=== PATIENT | female | born 1965 | race Caucasian/White ===

== ENCOUNTER → 2016-06-06 | Outpatient (CLI) | payer BC ==
[~2016-06-06] MED LIST: DOXY100C2 PO; FOLI1TAB7 PO; LEVO100T7 PO; LEVO50TA6 PO; METH1INJ89 SQ; MORP1TAB12 PO; OXYC-609 PO; OXYC15TA89 PO; RANI300T2 PO
--- NOTE | 2016-06-06 10:14 | DIAGNOSTIC IMAGING REPORT ---
MRI OF THE CERVICAL SPINE WITHOUT CONTRAST, FLEXION AND EXTENSION STUDY WITH CSF FLOW CLINICAL HISTORY: Chiari malformation. Upper motor signs. Severe pain with extremity numbness and tingling. Headache. COMPARISON STUDY: MRI of the cervical spine April 10, 2016. TECHNIQUE: Utilizing a 1.5 Mony magnet, multiplanar, multi echo imaging of the cervical spine was performed without intravenous contrast in the neutral, flexion and extension positions. EKG gated phase contrast CSF flow was performed. FINDINGS: There is 4 mm of cerebellar tonsillar ectopia. The findings do not meet criteria for a Chiari 1 malformation. Cervical cord signal and caliber are normal. There is no intracanalicular mass or fluid collection. Vertebral body heights are maintained. Paravertebral soft tissues are unremarkable. The neural foramen are suboptimally assessed on this exam. Alignment of the cervical spine is anatomic. There is no evidence for instability with flexion or extension. Disc bulges at C5-C6, C6-C7 and C7-T1 do not change with flexion or extension. There is minimal central canal narrowing at C6-C7. This is unchanged. Multilevel neural foraminal narrowing is better depicted on prior MRI. This appears unchanged. There is normal CSF flow within the anterior and posterior canal in the neutral, flexion and extension positions. IMPRESSION: 1. Mild multilevel degenerative disc disease, similar to exam of April 10, 2016. 2. Normal cervical cord signal and caliber. 3. Mild cerebellar tonsillar ectopia. The findings do not meet criteria for a Chiari I malformation. 4. Normal CSF flow in the neutral, flexion and extension positions. Electronically signed by: Barrington Carter M.D. 06/06/2016 10:13 AM Dictated Date/Time: 06/06/2016 10:04 AM
== END | disposition home or self-care (01) ==
LOC: C.MRI 07:54
DX: G93.5 Compression of brain (principal); G95.9 Disease of spinal cord, unspecified

== ENCOUNTER → 2016-10-18 | Outpatient (CLI) | payer BC ==
--- NOTE | 2016-10-18 14:35 | MAMMOGRAPHY REPORT ---
BILATERAL DIGITAL SCREENING MAMMOGRAM TOMOSYNTHESIS WITH CAD: 10/18/2016 CLINICAL HISTORY: Routine screening. Patient has no complaints. TECHNIQUE: Breast tomosynthesis in addition to standard 2D mammography was performed. Current study was also evaluated with a Computer Aided Detection (CAD) system. COMPARISON: Comparison is made to exams dated: 01/23/2012 mammogram, 01/04/2011 mammogram, 12/30/2009 m ammogram, 12/28/2009 mammogram - [facility], and 12/22/2008. BREAST COMPOSITION: There are scattered areas of fibroglandular density in both breasts. FINDINGS: No suspicious masses, calcifications, or areas of architectural distortion are noted in ei ther breast. There has been no significant interval change compared to prior exams. IMPRESSION: ACR BI-RADS CATEGORY 1: NEGATIVE There is no mammographic evidence of malignancy. A 1 year screening mammogram is recommended. The pa tient will receive written notification of the results. Approximately 10% of breast cancers are not detected with mammography. A negative mammographic report should not delay biopsy if a clinically suggestive mass is present. Mary Kay Friedman M.D. /:10/18/2016 13:22:03 Asp Developer: Jennifer IVAN(Sandra)(Maru)(BD), [facility] letter sent: Normal 1/2 BI-RADS Code: ACR BI-RADS Category 1: Negative
== END | disposition home or self-care (01) ==
LOC: C.MAMM 10:59
DX: Z12.31 Encounter for screening mammogram for malignant neoplasm of breast (principal)

== ENCOUNTER → 2016-10-24 | Outpatient (CLI) | payer BC | END | disposition home or self-care (01) | LOC: C.PAPS 10:29 | PROVIDERS: ATTEND Physician Assistant | DX: Z01.419 Encounter for gynecological examination (general) (routine) without abnormal findings (principal) ==

== ENCOUNTER → 2016-11-23 | Outpatient (CLI) | payer BC ==
[~2016-11-23] MED LIST changes: +OPTIRAY 320 IV PRN
--- NOTE | 2016-11-23 12:33 | DIAGNOSTIC IMAGING REPORT ---
ABD/PELVIS IV AND ORAL CONT CT DOSE: 687.60 mGycm HISTORY: Pain AB PAIN TECHNIQUE: Multiaxial CT images of the abdomen and pelvis were performed following the use of intravenous and oral contrast. A dose lowering technique was utilized adhering to the principles of ALARA. COMPARISON STUDY: 08/16/2014 FINDINGS: Lung bases are clear. Liver is uniform. Gallbladder is contracted. Kidneys enhance uniformly. Nonobstructive bowel pattern. Normal appendix. Subtle wall edema of several loops of small bowel raising the possibility of nonspecific enteritis. Slight wall edema of the sigmoid and descending colonic regions. Trace pericolonic infiltrative change. No evidence for abscess collection or obstruction. IMPRESSION: 1. Normal appendix. 2. Nonobstructive bowel pattern. 3. Mild small bowel enteritis. 4. Mild nonspecific colitis of the sigmoid and distal descending colonic region. 5. No evidence for abscess collection or obstruction. The above report was generated using voice recognition software. It may contain grammatical, syntax or spelling errors. Electronically signed by: Arden Sandoval M.D. 11/23/2016 12:31 PM Dictated Date/Time: 11/23/2016 12:23 PM
== END | disposition home or self-care (01) ==
LOC: C.CTS 11:50
DX: R31.9 Hematuria, unspecified (principal); R10.9 Unspecified abdominal pain

== ENCOUNTER → 2016-11-29 | Day surgery (SDC) | payer BC ==
[~2016-11-29] VITALS: Ht 165.1 cm; Wt 81.8 kg
[~2016-11-29] MED LIST changes: -DOXY100C2 PO; -LEVO50TA6 PO; +LIDOCAINE HCL 2% 2 ML VIAL (20MG/ML) ONE; +MIDAZOLAM HCL 1 MG/ML 2ML VIAL ONE; -OPTIRAY 320 IV PRN; -OXYC-609 PO; +PROPOFOL IV EMULSION 10 MG/ML 20 ML VIAL IV ONE; +SODIUM CHLORIDE 0.9% 500ML 500 ML IV ONE
[2016-11-29 13:58] VITALS: Ht 165.1 cm; Wt 81.8 kg
--- NOTE | 2016-11-29 15:07 | Endo History and Physical ---
History & Physical Date of Service: Nov 29, 2016. Chief Complaint: MYLEOPATHY Referring Physician: DR. GARZA History of Present Illness EGD and colon for paraneoplastic syndrome Past Medical History Arthritis, Fractures, Thyroid Disease Past Surgical History Hx Cardiac Surgery: No Hx Internal Defibrillator: No Hx Pacemaker: No Hx Abdominal Surgery: Yes (HYSTERECTOMY) Hx of Implantable Prosthesis: No Hx Post-Op Nausea and Vomiting: No Hx Cancer Surgery: No Hx Thoracic Surgery: No Hx Orthopedic: No Hx Urinary Tract Surgery: No Family History None Social History Smoking Status: Current Every Day Smoker Hx Substance Use: Yes (SEE MED REC) Hx Alcohol Use: Yes (OCCASIONALLY) Allergies Coded Allergies: Penicillins (Verified Allergy, Intermediate, TROUBLE BREATHING, 11/29/16) Current Medications Reported Home Medications Medications Dose Route/Sig Max Daily Dose Days Date Category Dose Instructions Oxycontin (Oxycodone Hcl) 15 Mg Tab 1-1.5 Tab PO Q4H PRN 11/28/16 Reported Zantac (Ranitidine HCl) 300 Mg Tab 300 Mg PO BID 11/28/16 Reported Levothyroxine Sodium 100 Mcg Tab 1 Tab PO QAM 90 11/28/16 Reported Folvite (Folic Acid) 1 Mg Tab 2 Tab PO QAM 06/06/15 Reported Morphine Sulfate Er (Morphine Sulfate) 30 Mg Tab 30 Mg PO TID 05/07/15 Reported Methotrexate (Methotrexate Sodium) Inj 0.4 Ml SQ WK 03/01/09 Reported TAKE THIS MEDICATION EVERY SATURDAY. Vital Signs Weight (Kilograms): 81.82 Height (Feet): 5 Height (Inches): 5 Date Time Temp Pulse Resp B/P (MAP) Pulse Ox O2 Delivery O2 Flow Rate FiO2 11/29/16 14:04 37.1 65 16 140/76 (97) 97 Room Air Physical Exam AAOx3 Nls1s2 Lungs CTA Abd soft NT/ND + BS - CCE Assessment and Plan EGD/colonoscopy
--- NOTE | 2016-11-29 15:47 | Discharge Instructions ---
Endoscopy Patient Instructions Date / Procedure(s) Performed Nov 29, 2016. Colonoscopy, EGD Allergy Information Coded Allergies: Penicillins (Verified Allergy, Intermediate, TROUBLE BREATHING, 11/29/16) Discharge Date / Findings Nov 29, 2016. mild esopgaitis; superficial gastric ulcer nl colon Medication Instructions Restart Stopped Medication(s): Reported Home Medications Medications Dose Route/Sig Max Daily Dose Days Date Category Dose Instructions Oxycontin (Oxycodone Hcl) 15 Mg Tab 1-1.5 Tab PO Q4H PRN 11/28/16 Reported Zantac (Ranitidine HCl) 300 Mg Tab 300 Mg PO BID 11/28/16 Reported Levothyroxine Sodium 100 Mcg Tab 1 Tab PO QAM 90 11/28/16 Reported Folvite (Folic Acid) 1 Mg Tab 2 Tab PO QAM 06/06/15 Reported Morphine Sulfate Er (Morphine Sulfate) 30 Mg Tab 30 Mg PO TID 05/07/15 Reported Methotrexate (Methotrexate Sodium) Inj 0.4 Ml SQ WK 03/01/09 Reported TAKE THIS MEDICATION EVERY SATURDAY. Reported Home Medications Medications Dose Route/Sig Max Daily Dose Days Date Category Dose Instructions Oxycontin (Oxycodone Hcl) 15 Mg Tab 1-1.5 Tab PO Q4H PRN 11/28/16 Reported Zantac (Ranitidine HCl) 300 Mg Tab 300 Mg PO BID 11/28/16 Reported Levothyroxine Sodium 100 Mcg Tab 1 Tab PO QAM 90 11/28/16 Reported Folvite (Folic Acid) 1 Mg Tab 2 Tab PO QAM 06/06/15 Reported Morphine Sulfate Er (Morphine Sulfate) 30 Mg Tab 30 Mg PO TID 05/07/15 Reported Methotrexate (Methotrexate Sodium) Inj 0.4 Ml SQ WK 03/01/09 Reported TAKE THIS MEDICATION EVERY SATURDAY. Provider Instructions Activity Restrictions - No exercising or heavy lifting for 24 hours. - Do not drink alcohol the day of the procedure. - Do not drive a car or operate machinery until the day after the procedure. - Do not make any important decisions or sign important papers in 24 hours after the procedure. Following Day: - Return to full activity which may include returning to work/school. Diet Start your diet with liquids and light foods (jello, soup, juice, toast). Then eat your usual diet if not nauseated. Treatment For Common After Affects For mild abdominal pain, bloating, or excessive gas: - Rest - Eat lightly - Lie on right side Follow-Up Information Follow-up with DR. GARZA as scheduled Anesthesia Information What You Should Know You have had a procedure that required some medicine to reduce anxiety and discomfort. This treatment is called moderate sedation. After receiving the treatment, you may be sleepy, but you will be able to breathe on your own. The effects of the treatment may last for several hours. Follow these instructions along with Activity/Diet recommendations noted above: * Do NOT do anything where dizziness or clumsiness would be dangerous. * Rest quietly at home today, then you can be up and about tomorrow. * Have a responsible person stay with you the rest of today. * You may have had an I.V. today. If so, you may take the dressing off later today. Recommendations Call your doctor if: * Trouble breathing * Continuous vomiting for more than 24 hours * Temperature above 101 degrees * Severe abdominal pain or bloating * Pain not relieved by pain medicine ordered * There is increased drainage or redness from any incision * A large amount of rectal bleeding greater than 2-3 tablespoons. (If you had a polyp/s removed or have hemorrhoids, a small amount of blood - from the rectum is to be expected.) * You have any unanswered questions or concerns. IN THE EVENT OF A SERIOUS EMERGENCY, GO TO THE NEAREST EMERGENCY ROOM Your discharge instructions were prepared by provider Yusuf Alejandra. Patient Instructions Signature Page Ade Hanna Patient (or Guardian) Signature/Date: I have read and understand the instructions given to me by my caregivers. Caregiver/RN/Doctor Signature/Date: The above-named patient and/or guardian has received patient instructions on this date. + Original Patient Signature Page (only) stays with chart. Please make copy for patient.
--- NOTE | 2016-11-29 15:59 | GI REPORT ---
Procedure Date: 11/29/2016 2:50 PM Procedure: Colonoscopy Indications: Change in bowel habits, ? paraneoplastic process Medicines: Propofol per Anesthesia Complications: No immediate complications. Estimated blood loss: Minimal. Estimated Blood Loss: Estimated blood loss was minimal. Procedure: Pre-Anesthesia Assessment: - Prior to the procedure, a History and Physical was performed, and patient medications and allergies were reviewed. The patient's tolerance of previous anesthesia was also reviewed. The risks and benefits of the procedure and the sedation options and risks were discussed with the patient. All questions were answered, and informed consent was obtained. Prior Anticoagulants: The patient has taken no previous anticoagulant or antiplatelet agents. ASA Grade Assessment: II - A patient with mild systemic disease. After reviewing the risks and benefits, the patient was deemed in satisfactory condition to undergo the procedure. After I obtained informed consent, the scope was passed under direct vision. Throughout the procedure, the patient's blood pressure, pulse, and oxygen saturations were monitored continuously. The scope was introduced through the anus and advanced to the terminal ileum, with identification of the appendiceal orifice and IC valve. The colonoscopy was performed without difficulty. The patient tolerated the procedure well. The quality of the bowel preparation was good. Findings: The perianal and digital rectal examinations were normal. Pertinent negatives include normal sphincter tone, no palpable rectal lesions and no anal lesion or abnormality was detected. The terminal ileum appeared normal. Biopsies were taken with a cold forceps for histology. Estimated blood loss was minimal. Verification of patient identification for the specimen was done by the physician and lighting engineering technician using the patient's name and medical record number. The colon (entire examined portion) appeared normal. The rectum, descending colon and ascending colon appeared normal. Biopsies were taken with a cold forceps for histology. Estimated blood loss was minimal. Verification of patient identification for the specimen was done by the physician and lighting engineering technician using the patient's name and medical record number. The retroflexed view of the distal rectum and anal verge was normal and showed no anal or rectal abnormalities. Impression: - The examined portion of the ileum was normal. Biopsied. - The entire examined colon is normal. - The rectum, descending colon and ascending colon are normal. Biopsied. - The distal rectum and anal verge are normal on retroflexion view. Recommendation: - Discharge patient to home (ambulatory). - Patient has a contact number available for emergencies. The signs and symptoms of potential delayed complications were discussed with the patient. Return to normal activities tomorrow. Written discharge instructions were provided to the patient. - Await pathology results. - Return to referring physician as previously scheduled. MD Yusuf Verdin MD 11/29/2016 3:58:52 PM This report has been signed electronically. Note Initiated On: 11/29/2016 2:50 PM I attest to the content of the Intraoperative Record and orders documented therein, exceptions below
--- NOTE | 2016-11-29 16:05 | GI REPORT ---
Procedure Date: 11/29/2016 2:49 PM Procedure: Upper GI endoscopy Indications: Epigastric abdominal pain, Anorexia, Early satiety, Weight loss Medicines: Propofol per Anesthesia Complications: No immediate complications. Estimated blood loss: Minimal. Estimated Blood Loss: Estimated blood loss was minimal. Procedure: Pre-Anesthesia Assessment: - Prior to the procedure, a History and Physical was performed, and patient medications and allergies were reviewed. The patient's tolerance of previous anesthesia was also reviewed. The risks and benefits of the procedure and the sedation options and risks were discussed with the patient. All questions were answered, and informed consent was obtained. Prior Anticoagulants: The patient has taken no previous anticoagulant or antiplatelet agents. ASA Grade Assessment: II - A patient with mild systemic disease. After reviewing the risks and benefits, the patient was deemed in satisfactory condition to undergo the procedure. After obtaining informed consent, the endoscope was passed under direct vision. Throughout the procedure, the patient's blood pressure, pulse, and oxygen saturations were monitored continuously. The scope was introduced through the mouth, and advanced to the jejunum. The upper GI endoscopy was accomplished without difficulty. The patient tolerated the procedure well. Findings: The upper third of the esophagus and middle third of the esophagus were normal. LA Grade B (one or more mucosal breaks greater than 5 mm, not extending between the tops of two mucosal folds) esophagitis with no bleeding was found 36 to 37 cm from the incisors. A small hiatus hernia was found. The proximal extent of the gastric folds (end of tubular esophagus) was 37 cm from the incisors. The hiatal narrowing was 38 cm from the incisors. The Z-line was 37 cm from the incisors. One non-bleeding superficial gastric ulcer with no stigmata of bleeding was found in the gastric body. The lesion was 6 mm in largest dimension. Biopsies were taken with a cold forceps for histology. Estimated blood loss was minimal. Verification of patient identification for the specimen was done by the physician and forklift technician using the patient's name and medical record number. The examined duodenum was normal. The examined jejunum was normal. This was biopsied with a cold forceps for histology. Verification of patient identification for the specimen was done by the physician and forklift technician using the patient's name and medical record number. The cardia and gastric fundus were normal on retroflexion. Retained gastric contents are not identified on this exam. Impression: - Normal upper third of esophagus and middle third of esophagus. - LA Grade B reflux esophagitis. - Small hiatus hernia. - Non-bleeding gastric ulcer with no stigmata of bleeding. Biopsied. - Normal examined duodenum. - Normal examined jejunum. Biopsied. Recommendation: - Discharge patient to home (ambulatory). - Patient has a contact number available for emergencies. The signs and symptoms of potential delayed complications were discussed with the patient. Return to normal activities tomorrow. Written discharge instructions were provided to the patient. - Advance diet as tolerated. - Await pathology results. - Return to referring physician as previously scheduled. MD Yusuf Verdin MD 11/29/2016 4:04:49 PM This report has been signed electronically. Note Initiated On: 11/29/2016 2:49 PM I attest to the content of the Intraoperative Record and orders documented therein, exceptions below
[2016-11-29 16:36] VITALS: BP 144/85; PULSE 67; O2SAT 98
--- NOTE | 2016-11-29 16:44 | Anesthesiology Progress Note ---
Anesthesia Post Op Note Date & Time Nov 29, 2016 at 16:44 Vital Signs Pain Intensity: 0 Vital Signs Past 12 Hours Date Time Temp Pulse Resp B/P (MAP) Pulse Ox O2 Delivery O2 Flow Rate FiO2 11/29/16 16:36 67 20 144/85 (104) 98 Room Air 11/29/16 16:13 67 20 125/71 (89) 98 Room Air 11/29/16 15:52 67 20 117/67 (84) 98 Room Air 11/29/16 14:04 37.1 65 16 140/76 (97) 97 Room Air Notes Mental Status: alert / awake / arousable, participated in evaluation Pt Amnestic to Procedure: Yes Nausea / Vomiting: adequately controlled Pain: adequately controlled Airway Patency, RR, SpO2: stable & adequate BP & HR: stable & adequate Hydration State: stable & adequate Anesthetic Complications: no major complications apparent
== END | disposition home or self-care (01) ==
LOC: C.GI 13:42
PROVIDERS: ATTEND Internal Medicine Gastroenterology
DX: R10.13 Epigastric pain (principal); R19.4 Change in bowel habit; K20.9 Esophagitis, unspecified; K44.9 Diaphragmatic hernia without obstruction or gangrene; K25.9 Gastric ulcer, unspecified as acute or chronic, without hemorrhage or perforation; R68.81 Early satiety; R63.4 Abnormal weight loss; R63.0 Anorexia; E07.9 Disorder of thyroid, unspecified; F17.200 Nicotine dependence, unspecified, uncomplicated; M19.90 Unspecified osteoarthritis, unspecified site; Z79.899 Other long term (current) drug therapy

== ENCOUNTER → 2017-01-30 | Outpatient (CLI) | payer BC ==
[~2017-01-30] MED LIST changes: +GADAVIST IV PRN; +GLUCAGON FOR INJ 1 MG VIAL ONE; -LIDOCAINE HCL 2% 2 ML VIAL (20MG/ML) ONE; -MIDAZOLAM HCL 1 MG/ML 2ML VIAL ONE; +NURSING VERBAL MED ORDER ONE; -PROPOFOL IV EMULSION 10 MG/ML 20 ML VIAL IV ONE; -SODIUM CHLORIDE 0.9% 500ML 500 ML IV ONE
--- NOTE | 2017-01-30 13:09 | DIAGNOSTIC IMAGING REPORT ---
KUB CLINICAL HISTORY: 51 years-old Female presenting with NAUSEA. TECHNIQUE: Single supine view of the abdomen was obtained. COMPARISON: CT from 11/23/2016. FINDINGS: Nonobstructive bowel gas pattern. No gross evidence of bowel wall thickening. Mild stool burden in the right colon. No gross pneumoperitoneum. Allowing for the presence of gas and stool, no calcifications project over the kidneys or along the courses of the ureters. Osseous structures normal. IMPRESSION: 1. No acute intra-abdominal pathology. Electronically signed by: Manolo Rose M.D. 01/30/2017 1:08 PM Dictated Date/Time: 01/30/2017 1:06 PM
--- NOTE | 2017-01-30 17:00 | DIAGNOSTIC IMAGING REPORT ---
MR ENTEROGRAPHY OF THE ABDOMEN AND PELVIS WITH AND WITHOUT CONTRAST CLINICAL HISTORY: Weight loss and bloating. Abnormal CT of small bowel. COMPARISON STUDY: CT of the abdomen and pelvis November 23, 2016. TECHNIQUE: The patient ingested 2 bottles of Volumen. Utilizing 1.5 Mony magnet and dedicated coil, multiplanar, multiecho imaging of the abdomen and pelvis was performed pre and postcontrast administration with dynamic enhancement. Injection of 8 cc of Gadavist IV was uneventful. 1 mg of glucagon was administered IM at 3:52 PM. FINDINGS: The liver, spleen, adrenal glands, kidneys and pancreas are normal. There is no biliary or pancreatic ductal dilatation. There is no hydronephrosis. No fluid collection is identified to suggest an abscess within the abdomen or the pelvis. The caliber of small and large bowel is normal. No bowel wall thickening or hyperemia is identified on this examination. No fistula is identified on this study. No abdominal or pelvic lymphadenopathy is noted. There is no perirectal or perianal abscess/fistula. No suspicious marrow replacement is identified. The terminal ileum is normal. IMPRESSION: Unremarkable MR enterography. No bowel wall thickening, hyperemia, abscess or fistula identified. No bowel obstruction. Electronically signed by: Barrington Carter M.D. 01/30/2017 4:59 PM Dictated Date/Time: 01/30/2017 4:42 PM
== END | disposition home or self-care (01) ==
LOC: C.MRI 12:39
PROVIDERS: ATTEND Internal Medicine Gastroenterology
DX: R11.0 Nausea (principal); K59.00 Constipation, unspecified

== ENCOUNTER → 2017-03-04 | Outpatient (CLI) | payer BC ==
[~2017-03-04] MED LIST changes: -GLUCAGON FOR INJ 1 MG VIAL ONE; -NURSING VERBAL MED ORDER ONE
--- NOTE | 2017-03-04 09:05 | DIAGNOSTIC IMAGING REPORT ---
Brain MRI WITH AND WITHOUT CONTRAST HISTORY: PROGRESSIVE QUADRIPARESIS TECHNIQUE: Multiplanar multisequence MRI of the brain was performed both before and after the intravenous administration of contrast. COMPARISON STUDY: Brain MRI 05/07/2015. FINDINGS: There are no areas of restricted diffusion to suggest acute infarction. The cerebellar tonsils lie 4 mm below the level of the foramen magnum. This is consistent with mild cerebellar tonsillar ectopia and is unchanged. There is no mass effect along the brainstem. Midline structures are intact. The paranasal sinuses are clear. The mastoid air cells are clear. The ventricles and sulci are within normal limits for age. There is no mass, hematoma, midline shift. The major vascular flow-voids at the skull base are well maintained. Postcontrast sequences show no areas of abnormal enhancement. Single punctate focus of T2 hyperintensity seen within the subcortical white matter of the right parietal lobe. This remains unchanged and is of doubtful clinical significance. IMPRESSION: No significant change compared to the prior study. No acute intracranial abnormality. Mild cerebellar tonsillar ectopia. Electronically signed by: Silas Spangler M.D. 03/04/2017 9:04 AM Dictated Date/Time: 03/04/2017 8:57 AM
== END | disposition home or self-care (01) ==
LOC: C.MRIBC 07:49
DX: G82.50 Quadriplegia, unspecified (principal); G93.89 Other specified disorders of brain

== ENCOUNTER → 2017-03-20 | Outpatient (CLI) | payer BC ==
--- NOTE | 2017-03-20 14:02 | DIAGNOSTIC IMAGING REPORT ---
CERVICAL SPINE MRI WITH AND WITHOUT CONTRAST HISTORY: Severe pain in arms and legs. GAIT Issues, legs GOING NUMB TECHNIQUE: Multiplanar multisequence MRI of the cervical spine was performed both before and after the use of intravenous contrast. COMPARISON STUDY: Cervical spine MRI 04/10/2016. FINDINGS: Straightening of the cervical spine. Alignment is intact. No fractures identified within the cervical spine. Prevertebral soft tissues and the C1-C2 interval are maintained. Mild cerebellar tonsillar to be a, unchanged. The cervical spinal cord is normal in course, caliber, and signal intensity. No abnormal enhancement. Moderate disc space narrowing at C5-C6 and mild disc space narrowing at C6-C7, unchanged. C2-C3: No significant central canal or neural foraminal narrowing. C3-C4: No significant central canal or neural foraminal narrowing. C4-C5: No significant change in the tiny focal central disc protrusion without significant central canal or neural foraminal narrowing. C5-C6: Small broad-based posterior disc osteophyte complex without significant central canal narrowing. Moderate to severe left and mild to moderate right neural foraminal narrowing, unchanged. C6-C7: Small broad-based posterior disc bulge without significant central canal narrowing. Mild right and moderate left neural foraminal narrowing, unchanged. C7-T1: No significant central canal or neural foraminal narrowing. IMPRESSION: 1. Overall, no significant change compared the prior study. 2. Normal cervical spinal cord. 3. No abnormal enhancement. 4. Multilevel degenerative changes as described above most pronounced at the C5-C6 level. Electronically signed by: Silas Spangler M.D. 03/20/2017 2:00 PM Dictated Date/Time: 03/20/2017 1:54 PM
== END | disposition home or self-care (01) ==
LOC: C.MRIBC 08:43
DX: G82.50 Quadriplegia, unspecified (principal)

== ENCOUNTER → 2017-05-20 | Outpatient (CLI) | payer OTHER ==
[~2017-05-20] MED LIST changes: -FOLI1TAB7 PO; +FOLI1TAB8 PO; -GADAVIST IV PRN; +OPTIRAY 300 IV PRN
--- NOTE | 2017-05-20 14:29 | DIAGNOSTIC IMAGING REPORT ---
IVP W/OR W/O TOMOGRAMS CLINICAL HISTORY: 51 years-old Female presenting with R31.29 Microhematuria. TECHNIQUE: An abdominal director education radiograph is performed. IVP pyelogram was then performed following the IV administration of 100 mL of Optiray 300, tomographic images are acquired in the corticomedullary and excretory phases of enhancement. Overhead views of the renal collecting system and bladder were obtained in multiple obliquities both pre and post void. COMPARISON: Plain radiographs from 01/30/[address] from 11/23/2016. FINDINGS: Initial noncontrast radiograph of the abdomen demonstrates a nonobstructive bowel gas pattern. No radiographically evident renal calculi allowing for the presence of bowel gas and stool. Osseous structures normal. Postcontrast imaging demonstrates normal excretion of intravenous contrast into the bilateral renal collecting systems. No hydronephrosis. Ureters opacify normally. No filling defect within the urinary collecting systems. The bladder distends normally. No bladder filling defect. Post void imaging demonstrates near complete evacuation of the urinary bladder with trace residual contrast in the urinary collecting systems. IMPRESSION: 1. Normal examination. No radiographically evident renal calculi or hydroureteronephrosis. 2. Normal post void residual volume. Electronically signed by: Manolo Rose M.D. 05/20/2017 2:19 PM Dictated Date/Time: 05/20/2017 2:16 PM
== END | disposition home or self-care (01) ==
LOC: C.RAD 12:34
PROVIDERS: ATTEND Urology
DX: R31.29 Other microscopic hematuria (principal)

== ENCOUNTER 2017-05-24 18:52 | Emergency (ER) | payer OTHER ==
[~2017-05-24] VITALS: Ht 165.1 cm; Wt 75.0 kg
[~2017-05-24 18:52] MED LIST changes: -OPTIRAY 300 IV PRN
[2017-05-24 18:55] VITALS: TEMP 36.3; Ht 165.1 cm; Wt 75.0 kg
[2017-05-24] MEDS ORDERED: KETOROLAC TROMETHAMINE 30 MG/ML VIAL IV STA (19:08)
[2017-05-24] MEDS ORDERED: PROMETHAZINE HCL INJ 6.25 MG in SODIUM CHLORIDE 0.9% 50ML 50 ML IV STA ×2 (19:08→20:40)
[2017-05-24] MEDS ORDERED: SODIUM CHLORIDE 0.9% 1000ML 2,000 ML IV STA (19:08)
[2017-05-24] MEDS ORDERED: ONDANSETRON INJ 2 MG/ML 2 ML VIAL IV STA (19:08)
--- NOTE | 2017-05-24 19:20 | EMERGENCY ROOM VISIT NOTE ---
History Report prepared by Shilpa: Pravin Colin Under the Supervision of: Dr. Merritt Abdullahi M.D. First contact with patient: 19:02 Chief Complaint: VOMITING Stated Complaint: HOT/COLD, THROWING UP Nursing Triage Summary: patient into triage via wheel chair, rocking back and forth unable to sit still. Moaning make the pain stop. she started with diarrhea last evening and vomiting to day with generalized abdominal pain. states she is unable to keep anything down and unable to take her medication because of this. when done being triaged patient stated " i Have to stand up my legs are killing me" got up out of the chair and walked around in triage and then sat back down to go to room. History of Present Illness The patient is a 51 year old female who presents to the Emergency Room with complaints of persistent vomiting and diarrhea that began today. She notes that she had 5 episodes of emesis today and many bouts of diarrhea. The patient states that she is also experiencing intermittent "stabbing" pains in her upper abdomen "under her ribs." She has no history of abdominal surgeries or disease. She was traveling with her out of state recently and is unaware of any sick contacts. The patient has a history of rheumatoid arthritis and has not been able to keep down her medications, resulting in joint pain. Source of History: patient Onset: Today Position: other (Gastrointestinal) Quality: other (Vomiting/Diarrhea) Timing: other (Persistent) Associated Symptoms: + abdominal pain Review of Systems See HPI for pertinent positives & negatives. A total of 10 systems reviewed and were otherwise negative. Past Medical & Surgical Medical Problems: (1) Blurred vision, bilateral (2) HTN (hypertension) (3) Ulcer Family History Cancer FH: HTN (hypertension) FH: kidney disease Heart disease Social History Smoking Status: Current Every Day Smoker Drug Use: none Marital Status: Housing Status: lives with family Occupation Status: employed Current/Historical Medications Scheduled Doxycycline Hyclate (Vibramycin), 100 MG PO BID Folic Acid (Folvite), 2 TAB PO QAM Levothyroxine Sodium (Levothyroxine Sodium), 1 TAB PO QAM Linaclotide (Linzess), 145 MCG PO DAILY Methotrexate (Methotrexate), 0.4 ML SQ WK Morphine Sulfate (Morphine Sulfate Er), 30 MG PO TID Ondasetron Odt (Zofran Odt), 4 MG SL Q6H Ranitidine (Zantac), 300 MG PO BID Scheduled PRN Oxycodone Hcl (Oxycontin), 1-1.5 TAB PO Q4H PRN for Pain Allergies Coded Allergies: Penicillins (Verified Allergy, Intermediate, TROUBLE BREATHING, 05/24/17) Physical Exam Vital Signs Date Time Temp Pulse Resp B/P (MAP) Pulse Ox O2 Delivery O2 Flow Rate FiO2 05/24/17 20:57 47 12 98 05/24/17 20:42 53 16 99 05/24/17 20:37 181/74 05/24/17 20:12 42 17 98 05/24/17 20:07 42 14 97 05/24/17 19:52 59 16 96 Room Air 05/24/17 19:41 41 05/24/17 19:32 150/100 05/24/17 18:55 36.3 55 22 154/77 96 Room Air Physical Exam GENERAL: Patient is in no acute distress. HEENT: No acute trauma, normocephalic atraumatic, mucous membranes are DRY, no nasal congestion, no scleral icterus. NECK: No stridor, no adenopathy, no meningismus, trachea is midline. LUNGS: Clear to auscultation bilaterally, no wheeze, no rhonchi, breath sounds equal. HEART: Without murmurs gallops or rubs, regular rate and rhythm. ABDOMEN: Soft, abdomen is moderately tender in the epigastrium. Bowel sounds positive, no hernias, no peritonitis. EXTREMITIES: No cyanosis or edema, full range of motion of all the joints without pain or difficulty, no signs for acute trauma. NEUROLOGIC: Oriented x 3, no acute motor or sensory deficits, no focal weakness. SKIN: No rash, no jaundice, no diaphoresis. Medical Decision & Procedures ER Provider Diagnostic Interpretation: Radiology results as stated below per my review and radiologist interpretation: GALLBLADDER-ABD LIMITED CLINICAL HISTORY: 51 years-old Female presenting with epig pain, vomiting, elev liver enzymes. TECHNIQUE: Real-time grayscale and limited color Doppler ultrasound imaging of the abdomen limited to the right upper quadrant was performed. COMPARISON: CT from 11/23/2016. FINDINGS: Pancreas: Visualized portions of the pancreatic head and body normal. Liver: Normal echogenicity and echotexture. The liver measures 16 cm in maximal sagittal dimension. No sonographic evidence of hepatic mass. Main portal vein patent with normal directional flow. Biliary: No intrahepatic biliary ductal dilatation. Common bile duct measures up to 5 mm in diameter. Gallbladder: Gallbladder contains debris. Allowing for this, no evidence of gallstones, gallbladder wall thickening, gallbladder distention, or pericholecystic fluid or inflammatory change. Right kidney: Normal in appearance. No hydronephrosis. Ascites: None. IMPRESSION: Gallbladder debris. No cholelithiasis or biliary ductal dilatation. Electronically signed by: Manolo Rose M.D. 05/24/2017 10:20 PM Dictated Date/Time: 05/24/2017 10:19 PM ABDOMEN 2VIEW W/PA CHEST RTN CLINICAL HISTORY: 51 years-old Female presenting with ABDOMINAL PAIN/GI. TECHNIQUE: PA view of the chest and supine and upright views of the abdomen were obtained. COMPARISON: CT from 11/23/2016. FINDINGS: Cardiomediastinal silhouette normal. Lungs and pleural spaces clear. Nonobstructive bowel gas pattern. No gross pneumoperitoneum. Allowing for bowel gas and stool, no calcifications to suggest nephrolithiasis. Osseous structures normal. IMPRESSION: 1. No acute cardiopulmonary disease. 2. No radiographic evidence of acute intra-abdominal pathology. Electronically signed by: Manolo Rose M.D. 05/24/2017 8:46 PM Dictated Date/Time: 05/24/2017 8:45 PM Laboratory Results 05/24/17 19:50 Red Blood Count 4.70, Mean Corpuscular Volume 96.2, Mean Corpuscular Hemoglobin 33.8, Mean Corpuscular Hemoglobin Concent 35.2, Mean Platelet Volume 11.4, Neutrophils (%) (Auto) 79.8, Lymphocytes (%) (Auto) 15.4, Monocytes (%) (Auto) 3.9, Eosinophils (%) (Auto) 0.2, Basophils (%) (Auto) 0.5, Neutrophils # (Auto) 5.18, Lymphocytes # (Auto) 1.00, Monocytes # (Auto) 0.25, Eosinophils # (Auto) 0.01, Basophils # (Auto) 0.03 05/24/17 19:50 Test 05/24/17 19:50 05/24/17 20:55 White Blood Count 6.48 K/uL (4.8-10.8) Red Blood Count 4.70 M/uL (4.2-5.4) Hemoglobin 15.9 g/dL (12.0-16.0) Hematocrit 45.2 % (37-47) Mean Corpuscular Volume 96.2 fL (80-100) Mean Corpuscular Hemoglobin 33.8 pg (25-34) Mean Corpuscular Hemoglobin Concent 35.2 g/dl (32-36) Platelet Count 128 K/uL (130-400) Mean Platelet Volume 11.4 fL (7.4-10.4) Neutrophils (%) (Auto) 79.8 % Lymphocytes (%) (Auto) 15.4 % Monocytes (%) (Auto) 3.9 % Eosinophils (%) (Auto) 0.2 % Basophils (%) (Auto) 0.5 % Neutrophils # (Auto) 5.18 K/uL (1.4-6.5) Lymphocytes # (Auto) 1.00 K/uL (1.2-3.4) Monocytes # (Auto) 0.25 K/uL (0.11-0.59) Eosinophils # (Auto) 0.01 K/uL (0-0.5) Basophils # (Auto) 0.03 K/uL (0-0.2) RDW Standard Deviation 52.1 fL (36.4-46.3) RDW Coefficient of Variation 14.8 % (11.5-14.5) Immature Granulocyte % (Auto) 0.2 % Immature Granulocyte # (Auto) 0.01 K/uL (0.00-0.02) Anion Gap 8.0 mmol/L (3-11) Est Creatinine Clear Calc Drug Dose 106.1 ml/min Estimated GFR () 120.8 Estimated GFR (Non- 104.3 BUN/Creatinine Ratio 20.6 (10-20) Calcium Level 9.2 mg/dl (8.5-10.1) Total Bilirubin 0.9 mg/dl (0.2-1) Aspartate Amino Transf (AST/SGOT) 123 U/L (15-37) Alanine Aminotransferase (ALT/SGPT) 143 U/L (12-78) Alkaline Phosphatase 116 U/L (45-117) Troponin I < 0.015 ng/ml (0-0.045) Total Protein 7.6 gm/dl (6.4-8.2) Albumin 4.1 gm/dl (3.4-5.0) Globulin 3.5 gm/dl (2.5-4.0) Albumin/Globulin Ratio 1.2 (0.9-2) Lipase 126 U/L (73-393) Chemistry Specimen Hemolysis Urine Color YELLOW Urine Appearance CLOUDY (CLEAR) Urine pH >= 9.0 (4.5-7.5) Urine Specific [place] 1.021 (1.000-1.030) Urine Protein NEG (NEG) Urine Glucose (UA) NEG (NEG) Urine Ketones 1+ (NEG) Urine Occult Blood NEG (NEG) Urine Nitrite NEG (NEG) Urine Bilirubin NEG (NEG) Urine Urobilinogen NEG (NEG) Urine Leukocyte Esterase NEG (NEG) Urine WBC (Auto) 1-5 /hpf (0-5) Urine RBC (Auto) 5-10 /hpf (0-4) Urine Hyaline Casts (Auto) 1-5 /lpf (0-5) Urine Epithelial Cells (Auto) 10-20 /lpf (0-5) Urine Bacteria (Auto) NEG (NEG) Laboratory results reviewed by me. Medications Administered Medications (Trade) Dose Ordered Sig/Edson Route Start Time Stop Time Status Last Admin Dose Admin Sodium Chloride 2,000 ml @ 999 mls/hr Q2H1M STAT IV 05/24/17 19:08 05/24/17 21:08 DC 05/24/17 19:48 999 MLS/HR Ondansetron HCl (Zofran Inj) 4 mg NOW STAT IV 05/24/17 19:08 05/24/17 19:10 DC 05/24/17 19:52 4 MG Ketorolac Tromethamine (Toradol Inj) 30 mg NOW STAT IV 05/24/17 19:08 05/24/17 19:10 DC 05/24/17 19:50 30 MG Promethazine HCl 6.25 mg/Sodium Chloride 50.25 ml @ 204 mls/hr NOW STAT IV 05/24/17 19:08 05/24/17 19:22 DC 05/24/17 19:59 204 MLS/HR Promethazine HCl 6.25 mg/Sodium Chloride 50.25 ml @ 204 mls/hr NOW STAT IV 05/24/17 20:40 05/24/17 20:54 DC 05/24/17 21:08 204 MLS/HR Morphine Sulfate (MoRPHine SULFATE INJ) 4 mg Q15M PRN IV 05/24/17 20:45 06/07/17 20:44 05/24/17 21:47 4 MG ECG Indication: vomiting Rate (beats per minute): 42 Rhythm: sinus bradycardia Findings: no acute ischemic change, no ectopy Change: Patient's electrocardiogram per my interpretation. ED Course 1904: The patient was evaluated in room B11B. A complete history and physical exam was performed. 1907: Ordered Promethazine HCl 50.25 mL @ 204 mL/hr IV, Toradol 30 mg IV, Zofran 4 mg IV, Sodium Chloride 2000 mL @ 999 mL/hr IV. 2035: I updated the patient at this time. She is aware of her US study. 2039: Ordered Promethazine HCl 50.25 mL @ 204 mL/hr IV. 2044: Ordered Morphine Sulfate 4 mg IV. 2227: Reevaluated the patient, She is still having slight tenderness in the epigastrium. Discussed results and discharge instructions: She verbalized understanding and agreement. The patient is ready for discharge. 2229: Ordered Zofran 1 homepack PO. Medical Decision Differential Diagnosis includes; viral illness, food born illness, urinary tract infection, bowel obstruction, ileus, electrolyte imbalance, anemia, pancreatitis, biliary colic. There is no leukocytosis or concerning anemia. No significant electrolyte abnormality or kidney failure. There were a few mild liver enzyme elevations, bilirubin was not elevated. No evidence for pancreatitis. Urinalysis does not show evidence for infection. Obstruction series shows no pneumonia, free air or bowel obstruction. Gallbladder ultrasound shows some sludge, no stones, no acute cholecystitis. The patient was bradycardic here, EKG demonstrates a sinus bradycardia. Cardiac enzyme testing times one does not show any evidence for acute cardiac injury. The patient received IV saline, IV Zofran, IV Toradol and IV Phenergan. She received an additional dose of IV Phenergan. She was given IV morphine. The patient is feeling improved, no further vomiting in the ED. The patient looks improved and I do think she can be discharged. Looking back at previous records, she has had a heart rate in the 50s before, I think the 40s today is not too far off for her, in addition, I do think she had a vagal response from the nausea bringing the heart rate down even lower. She was not hypotensive, she had no syncopal spell, no lightheadedness. The patient was reassured by her testing. She will be discharged with Zofran and a bland diet, if worsening, she can return. She has pain meds at home to use as needed. This illness appears viral. Medication Reconcilliation Current Medication List: was personally reviewed by me Blood Pressure Screening Patient's blood pressure: Elevated blood pressure Blood pressure disposition: Referred to PCP Impression Primary Impression: Nausea, vomiting, and diarrhea Additional Impressions: Dehydration Bradycardia Scribe Attestation The scribe's documentation has been prepared under my direction and personally reviewed by me in its entirety. I confirm that the note above accurately reflects all work, treatment, procedures, and medical decision making performed by me. Departure Information Dispostion Home / Self-Care Prescriptions Ondasetron Odt (ZOFRAN ODT) 4 Mg Tab 4 MG SL Q6H for Nausea, #10 TAB Prov: Merritt Abdullahi M.D. 05/24/17 Referrals Tripp Elise Jr,D.O. (PCP) Forms HOME CARE DOCUMENTATION FORM, IMPORTANT VISIT INFORMATION Patient Instructions My [facility] Additional Instructions bland diet---crackers, soup, toast, gatorade rest pain meds as before zofran 1-2 tab every 6 hours for nausea return if worsening as we discussed follow with kalpana hays for recheck and recheck of the heart rate--it was slower today as we discussed Problem Qualifiers
[2017-05-24 20:07] LABS: BASO % 0.5 %; BASO ABS # 0.03 K/uL (0-0.2); EOS % 0.2 %; EOS ABS # 0.01 K/uL (0-0.5); HEMATOCRIT 45.2 % (37-47); HEMOGLOBIN 15.9 g/dL (12.0-16.0); IG# 0.01 K/uL (0.00-0.02); LYMPH % 15.4 %; MEAN CELL VOLUME 96.2 fL (80-100); MEAN CORPUSCULAR HEMOGLOBIN 33.8 pg (25-34); MEAN CORPUSCULAR HGB CONC 35.2 g/dl (32-36); MEAN PLATELET VOLUME 11.4 fL (7.4-10.4); MONO % 3.9 %; MONO ABS # 0.25 K/uL (0.11-0.59); NEUT % 79.8 %; NEUT ABS # 5.18 K/uL (1.4-6.5); PLATELET COUNT 128 K/uL (130-400); RED CELL DISTRIBUTION WIDTH CV 14.8 % (11.5-14.5); RED CELL DISTRIBUTION WIDTH SD 52.1 fL (36.4-46.3); WHITE BLOOD COUNT 6.48 K/uL (4.8-10.8)
[2017-05-24 20:32] LABS: ALBUMIN 4.1 gm/dl (3.4-5.0); CALCIUM 9.2 mg/dl (8.5-10.1); CREATININE 0.65 mg/dl (0.60-1.20); POTASSIUM 4.2 mmol/L (3.5-5.1); TOTAL PROTEIN 7.6 gm/dl (6.4-8.2)
--- NOTE | 2017-05-24 20:47 | DIAGNOSTIC IMAGING REPORT ---
ABDOMEN 2VIEW W/PA CHEST RTN CLINICAL HISTORY: 51 years-old Female presenting with ABDOMINAL PAIN/GI. TECHNIQUE: PA view of the chest and supine and upright views of the abdomen were obtained. COMPARISON: CT from 11/23/2016. FINDINGS: Cardiomediastinal silhouette normal. Lungs and pleural spaces clear. Nonobstructive bowel gas pattern. No gross pneumoperitoneum. Allowing for bowel gas and stool, no calcifications to suggest nephrolithiasis. Osseous structures normal. IMPRESSION: 1. No acute cardiopulmonary disease. 2. No radiographic evidence of acute intra-abdominal pathology. Electronically signed by: Manolo Rose M.D. 05/24/2017 8:46 PM Dictated Date/Time: 05/24/2017 8:45 PM
[2017-05-24] MEDS: MoRPHine SULFATE 4 MG/ML 1 ML CARP\\VIAL IV PRN ×2 (20:53→21:47)
[2017-05-24] MEDS ORDERED: LINA1CAP PO (21:10)
[2017-05-24] MEDS ORDERED: DOXY100C2 PO (21:10)
--- NOTE | 2017-05-24 22:22 | DIAGNOSTIC IMAGING REPORT ---
GALLBLADDER-ABD LIMITED CLINICAL HISTORY: 51 years-old Female presenting with epig pain, vomiting, elev liver enzymes. TECHNIQUE: Real-time grayscale and limited color Doppler ultrasound imaging of the abdomen limited to the right upper quadrant was performed. COMPARISON: CT from 11/23/2016. FINDINGS: Pancreas: Visualized portions of the pancreatic head and body normal. Liver: Normal echogenicity and echotexture. The liver measures 16 cm in maximal sagittal dimension. No sonographic evidence of hepatic mass. Main portal vein patent with normal directional flow. Biliary: No intrahepatic biliary ductal dilatation. Common bile duct measures up to 5 mm in diameter. Gallbladder: Gallbladder contains debris. Allowing for this, no evidence of gallstones, gallbladder wall thickening, gallbladder distention, or pericholecystic fluid or inflammatory change. Right kidney: Normal in appearance. No hydronephrosis. Ascites: None. IMPRESSION: Gallbladder debris. No cholelithiasis or biliary ductal dilatation. Electronically signed by: Manolo Rose M.D. 05/24/2017 10:20 PM Dictated Date/Time: 05/24/2017 10:19 PM
[2017-05-24] MEDS ORDERED: ONDANSETRON HOME PACK 4MG OD TAB PO ONE (22:30)
[2017-05-24] MEDS ORDERED: ONDA4TAB10 SL (22:30)
[2017-05-24 22:42] VITALS: BP 178/83; PULSE 50; O2SAT 97
== END 2017-05-24 22:48 | disposition home or self-care (01) ==
LOC: C.EDB 18:54
DX: R11.2 Nausea with vomiting, unspecified (principal); R19.7 Diarrhea, unspecified; E86.0 Dehydration; R00.1 Bradycardia, unspecified; M06.9 Rheumatoid arthritis, unspecified; I10 Essential (primary) hypertension; Z80.9 Family history of malignant neoplasm, unspecified; Z82.49 Family history of ischemic heart disease and other diseases of the circulatory system; Z84.1 Family history of disorders of kidney and ureter; F17.210 Nicotine dependence, cigarettes, uncomplicated; Z79.899 Other long term (current) drug therapy

== ENCOUNTER → 2017-06-13 | Outpatient (CLI) | payer OTHER ==
[~2017-06-13] MED LIST changes: +DOXY100C2 PO; +LINA1CAP PO; +ONDA4TAB10 SL
--- NOTE | 2017-06-13 12:22 | DIAGNOSTIC IMAGING REPORT ---
MRCP CLINICAL HISTORY: EPIGASTRIC PAIN,ELEVATED LFT'S COMPARISON STUDY: Biliary ultrasound performed May 24, 2017 FINDINGS: No hepatic masses are visualized on this noncontrast study. No splenic masses are visualized. No pancreatic masses are visualized. There is no pancreatic ductal dilatation. There is no intra or extrahepatic biliary ductal dilatation. The common buttock measures 4 mm. No ductal filling defects are visualized. No gallbladder calculi are visualized. IMPRESSION: Normal study. No calculi identified. No evidence of ductal dilatation. Electronically signed by: Hany Hansen M.D. 06/13/2017 12:21 PM Dictated Date/Time: 06/13/2017 12:17 PM
== END | disposition home or self-care (01) ==
LOC: C.MRI 11:15
PROVIDERS: ATTEND Internal Medicine Gastroenterology
DX: R63.4 Abnormal weight loss (principal); R10.13 Epigastric pain; Z88.0 Allergy status to penicillin

== ENCOUNTER → 2017-08-01 | Outpatient (CLI) | payer OTHER ==
--- NOTE | 2017-08-01 12:49 | DIAGNOSTIC IMAGING REPORT ---
BRAIN WITHOUT CONTRAST HISTORY: 51 years-old Female HX OF CHIARI MALFORMATION, NEW ONSET VERTIGO acute vertigo with history of Chiari malformation COMPARISON: Brain MRI 03/04/2017 TECHNIQUE: Multiplanar multisequence MRI of the brain was obtained without the use of IV contrast. FINDINGS: Mild cerebellar tonsillar ectopia is again seen, 4 mm below the foramen magnum. No syrinx of the imaged cervical spinal cord. The corpus callosum, brainstem, optic chiasm, pituitary and pineal gland appear unremarkable the sagittal T1 series. There is no restricted diffusion to suggest acute or subacute infarction. No pathologic blooming artifact identified. No acute intracranial hemorrhage, midline shift, abnormal extra-axial collections or hydrocephalus. No intracranial mass identified. Punctate area of T2/FLAIR prolongation within the subcortical white matter of the right frontal lobe, image 16 series 9 likely of no clinical significance. The major flow voids at the level of the skull base appear patent. Orbits are symmetric and within normal limits. Mastoid air cells are clear. No significant paranasal sinus disease. The scalp, calvarium and soft tissues are within normal limits. IMPRESSION: 1. No acute intracranial abnormality. 2. Mild cerebellar tonsillar ectopia. The above report was generated using voice recognition software. It may contain grammatical, syntax or spelling errors. Electronically signed by: Gerson Valverde M.D. 08/01/2017 12:47 PM Dictated Date/Time: 08/01/2017 12:41 PM
--- NOTE | 2017-08-01 13:01 | DIAGNOSTIC IMAGING REPORT ---
CERVICAL FLEX/EXT CSF HISTORY: 51 years-old Female HX OF CHIARI MALFORMATION, NEW ONSET VERTIGO acute vertigo. COMPARISON: MRI brain of same day, CT cervical spine 03/20/2017 TECHNIQUE: Multiplanar multisequence MRI of the cervical spine was obtained utilizing flexion and extension CSF flow protocol. FINDINGS: Large [id number] middle card tender localizer images demonstrate no gross abnormality. Imaged lung apices appear clear. Modic type I endplate degenerative changes involve the superior endplate C7. Mild intervertebral disc space narrowing at C5-C6 and C6-C7 without significant central canal narrowing. Moderate to severe left and moderate right foraminal narrowing is again seen at C5-C6. Mild right and moderate left foraminal narrowing at C6-C7. Mild multilevel facet arthrosis. There is normal flow of CSF anteriorly. Minimal diminished flow posteriorly at C2-C3 and C3-C4 with flexion, likely of no clinical significance. The imaged cervical spinal cord appears normal without syrinx identified. Mild cerebellar tonsillar ectopia redemonstrated. Soft tissues are unremarkable. No acute intracranial abnormality. IMPRESSION: 1. Mild cerebellar tonsillar ectopia redemonstrated without cervical spine syrinx identified. 2. Normal CSF flow of the cervical spine. The above report was generated using voice recognition software. It may contain grammatical, syntax or spelling errors. Electronically signed by: Gerson Valverde M.D. 08/01/2017 1:00 PM Dictated Date/Time: 08/01/2017 12:48 PM
== END | disposition home or self-care (01) ==
LOC: C.MRIBC 10:31
DX: R42 Dizziness and giddiness (principal)

== ENCOUNTER → 2017-08-12 | Outpatient (CLI) | payer OTHER ==
--- NOTE | 2017-08-12 18:46 | DIAGNOSTIC IMAGING REPORT ---
KUB HISTORY: CONSTIPATION COMPARISON: Chest abdomen series 05/24/2017. FINDINGS: The bowel gas pattern is unremarkable. There are no dilated loops of small bowel to suggest an obstruction. No renal calculi. No ureteral calculi. No pneumoperitoneum or pneumatosis. Small amount of stool within the proximal colon. IMPRESSION: 1. Small amount of well-formed stool within the proximal colon. 2. No evidence for bowel obstruction. Electronically signed by: Silas Spangler M.D. 08/12/2017 6:44 PM Dictated Date/Time: 08/12/2017 6:44 PM
[2017-08-12 19:03] LABS: ALBUMIN 3.5 gm/dl (3.4-5.0); ALKALINE PHOSPHATASE 106 U/L (45-117); ALT/SGPT 18 U/L (12-78); AST/SGOT 17 U/L (15-37); TOTAL PROTEIN 6.7 gm/dl (6.4-8.2)
[2017-08-12 22:03] LABS: BASO % 0.6 %; BASO ABS # 0.03 K/uL (0-0.2); EOS % 1.5 %; EOS ABS # 0.08 K/uL (0-0.5); HEMATOCRIT 41.1 % (37-47); HEMOGLOBIN 14.4 g/dL (12.0-16.0); IG# 0.01 K/uL (0.00-0.02); LYMPH ABS # 2.18 K/uL (1.2-3.4); MEAN CELL VOLUME 98.3 fL (80-100); MEAN CORPUSCULAR HEMOGLOBIN 34.4 pg (25-34); MEAN PLATELET VOLUME 11.5 fL (7.4-10.4); MONO % 9.7 %; MONO ABS # 0.53 K/uL (0.11-0.59); NEUT ABS # 2.62 K/uL (1.4-6.5); PLATELET COUNT 106 K/uL (130-400); RED CELL DISTRIBUTION WIDTH CV 14.4 % (11.5-14.5); RED CELL DISTRIBUTION WIDTH SD 51.2 fL (36.4-46.3); WHITE BLOOD COUNT 5.45 K/uL (4.8-10.8)
== END | disposition home or self-care (01) ==
LOC: C.RAD 17:36
DX: K59.00 Constipation, unspecified (principal); M12.9 Arthropathy, unspecified; R74.0 Nonspecific elevation of levels of transaminase and lactic acid dehydrogenase [LDH]

== ENCOUNTER → 2017-08-22 | Outpatient (CLI) | payer OTHER ==
[~2017-08-22] MED LIST changes: +SINCALIDE INJ 1.5 MCG in SODIUM CHLORIDE 0.9% 100ML 100 ML IV ONE
--- NOTE | 2017-08-22 13:10 | DIAGNOSTIC IMAGING REPORT ---
NUCLEAR MEDICINE HEPATOBILIARY SCAN WITH GALLBLADDER EJECTION FRACTION CLINICAL HISTORY: Abdominal pain with eating, weight loss and bloating. COMPARISON: CT of the abdomen and pelvis November 23, 2016 and MRCP June 13, 2017. TECHNIQUE: 5.4 mCi of technetium 99m Choletec IV was injected at 10:50 AM on August 22, 2017. Immediately following injection, imaging of the abdomen was carried out for 60 minutes in the anterior projection. At this time, 1.5 mcg of Sincalide was injected IV as per protocol. Imaging was performed for an additional 45 minutes to estimate a gallbladder ejection fraction. FINDINGS: Hepatic uptake of radiotracer is prompt and homogeneous. Activity is identified within the common bile duct at 10 minutes. Gallbladder activity is noted at 20 minutes. Small bowel activity is noted at 40 minutes. Following injection of sincalide, normal gallbladder emptying is noted within ejection fraction of 73%. Normal is greater than 30-35%. IMPRESSION: 1. Normal hepatobiliary scan. No evidence of acute or chronic cholecystitis. 2. Normal gallbladder ejection fraction of 73%. Electronically signed by: Barrington Carter M.D. 08/22/2017 1:08 PM Dictated Date/Time: 08/22/2017 1:07 PM
== END | disposition home or self-care (01) ==
LOC: C.NUCL 10:23
PROVIDERS: ATTEND Internal Medicine Gastroenterology
DX: R14.0 Abdominal distension (gaseous) (principal)